=== PATIENT | male | born 1965 | race Two or more races ===

== ENCOUNTER 2019-02-18 16:48 | Emergency (ER) | payer MEDICAID ==
[~2019-02-18] VITALS: Ht 180.3 cm; Wt 95.3 kg
--- NOTE | 2019-02-18 16:55 | NUR ---
ED Nurse Note: Pt BIBA from [facility] w/ complaints of abdominal pain since last night. Pt is rating the pain a 10/10. Non radiating. Pt has n,v,d as well. Pt has had a hx of pancreatitis x 4 years and it occurs intermittently. Pt is A + O x4. Ambulatory. Skin warm to touch.
[2019-02-18 17:06] VITALS: BP 174/118
--- NOTE | 2019-02-18 17:08 | NUR ---
ED Nurse Note: US at the bedside.
[2019-02-18 17:22] LABS: BASOPHILS % (AUTO) 1.5 % (0.0-2.0); EOSINOPHILS % (AUTO) 1.8 % (0.0-3.0); HEMATOCRIT 48.8 % (42.0-52.0); HEMOGLOBIN 15.8 G/DL (14.2-18.0); LYMPHOCYTES % (AUTO) 34.7 % (20.0-45.0); MEAN CORPUSCULAR VOLUME 82 FL (80-99); MONOCYTES % (AUTO) 6.3 % (1.0-10.0); NEUTROPHILS % (AUTO) 55.7 % (45.0-75.0); PLATELET COUNT 264 K/UL (150-450); RED BLOOD COUNT 5.95 M/UL (4.70-6.10); RED CELL DISTRIBUTION WIDTH 12.8 % (11.6-14.8); WHITE BLOOD COUNT 5.6 K/UL (4.8-10.8)
[2019-02-18 17:28] LABS: ANION GAP 11 mmol/L (5-15); BLOOD UREA NITROGEN 9 mg/dL (7-18); CALCIUM 9.1 MG/DL (8.5-10.1); CARBON DIOXIDE 29 MMOL/L (21-32); CHLORIDE 100 MMOL/L (98-107); CREATININE 0.7 MG/DL (0.55-1.30); POTASSIUM 4.3 MMOL/L (3.5-5.1); SODIUM 140 MMOL/L (136-145)
[2019-02-18 17:30] LABS: INR 0.9 (0.9-1.1)
[2019-02-18 17:34] LABS: AMMONIA 28 umol/L (11-32)
[2019-02-18 17:37] LABS: ALANINE AMINOTRANSFERASE 41 U/L (12-78); ALBUMIN 4.2 G/DL (3.4-5.0); ALBUMIN/GLOBULIN RATIO 0.9 (1.0-2.7); ALKALINE PHOSPHATASE 91 U/L (46-116); ASPARTATE AMINO TRANSFERASE 34 U/L (15-37); BILIRUBIN,TOTAL 0.2 MG/DL (0.2-1.0)
[2019-02-18] MEDS ORDERED: Morphine Sulfate 4mg/ml Inj (IV USE ONLY) IVP ONE (17:45)
[2019-02-18] MEDS ORDERED: Lidocaine 2% Visc 15ml soln ORAL ONE (18:15)
--- NOTE | 2019-02-18 18:59 | NUR ---
HAND-OFF: Report given to YULISSA Argueta.
--- NOTE | 2019-02-18 19:03 | Emergency Room Report ---
History of Present Illness General Chief Complaint: Abdominal Pain Source: Patient, EMS Present Illness HPI This patient complains of pain in the right upper quadrant and epigastrium. The patient states he has had this previously and was seen a couple days ago at [facility]. He states he was borderline pancreatitis. He does admit to drinking alcohol. He states he drinks alcohol because of the pain. He denies tobacco or drug use. States the pain is in his upper abdomen. He has been seen at other hospitals for the same thing. He states he just keeps getting released. He states that he has had nausea and vomiting. He denies diarrhea. He states he is having normal bowel movements. He has no other complaints. Allergies: Coded Allergies: No Known Allergies (Unverified , 02/18/19) Patient History Past Medical History: see triage record, HTN, seizures Social History: Reports: alcohol use; Denies: smoking, drug use Reviewed Nursing Documentation: PMH: Agreed; PSxH: Agreed Nursing Documentation-PMH Past Medical History: No History, Except For Hx Hypertension: Yes Hx Seizures: Yes Review of Systems All Other Systems: negative except mentioned in HPI Physical Exam Vital Signs Date Time Temp Pulse Resp B/P (MAP) Pulse Ox O2 Delivery O2 Flow Rate FiO2 02/18/19 16:42 98.4 100 21 156/103 98 Room Air 02/18/19 17:06 94 Sp02 EP Interpretation: reviewed, normal General Appearance: no apparent distress, alert, GCS 15, non-toxic Head: normocephalic, atraumatic Eyes: bilateral eye normal inspection, bilateral eye PERRL ENT: hearing grossly normal, normal pharynx, no angioedema, normal voice Neck: full range of motion, supple/symm/no masses Respiratory: chest non-tender, lungs clear, normal breath sounds, no respiratory distress, no retraction, no accessory muscle use, speaking full sentences Cardiovascular #1: regular rate, rhythm, no edema Gastrointestinal: normal bowel sounds, soft, non-distended, no guarding, no rebound, tenderness - TTP in the epigastrium Rectal: deferred Musculoskeletal: back normal, gait/station normal, normal range of motion, non- tender Neurologic: alert, oriented x3, responsive, motor strength/tone normal, sensory intact, speech normal Psychiatric: judgement/insight normal, memory normal, mood/affect normal, no suicidal/homicidal ideation Skin: normal color, no rash, warm/dry, well hydrated Medical Decision Making Diagnostic Impression: Primary Impression: Abdominal pain Additional Impression: Gastritis ER Course This patient has a clinical presentation consistent with gastritis versus pain seeking versus cannabis use side effects. The location of the pain and history and physical examination is consistent with this. I considered other concerning differentials, to include appendicitis, cholelithiasis, cholecystitis , pancreatitis, perforated viscus, aortic aneurysm, and pyelonephritis to name a few. However, laboratory workup in combination with medical and surgical history and physical exam makes these unlikely at this time. Ultrasound of the right upper quadrant showed no significant findings. Specifically no evidence of cholelithiasis or cholecystitis. There was no evidence of pancreatitis. I suspect this patient is narcotic seeking. Further discussion with the patient and he requested anxiety medications. The patient had no evidence of anxiety. He also has been to multiple emergency departments recently. He also is very dramatic on arrival here to the emergency department with a completely unremarkable workup. He states he is drinking alcohol heavily. He could have a gastritis. I suspect he is also using illicit drugs. However, he refused a urinalysis. Regardless, I did not identify an emergency medical condition. I will chief the patient has gastritis. I did educate the patient on close return precautions and followup instructions. Laboratory Tests Test 02/18/19 17:05 White Blood Count 5.6 K/UL (4.8-10.8) Red Blood Count 5.95 M/UL (4.70-6.10) Hemoglobin 15.8 G/DL (14.2-18.0) Hematocrit 48.8 % (42.0-52.0) Mean Corpuscular Volume 82 FL (80-99) Mean Corpuscular Hemoglobin 26.5 PG (27.0-31.0) L Mean Corpuscular Hemoglobin Concent 32.3 G/DL (32.0-36.0) Red Cell Distribution Width 12.8 % (11.6-14.8) Platelet Count 264 K/UL (150-450) Mean Platelet Volume 5.4 FL (6.5-10.1) L Neutrophils (%) (Auto) 55.7 % (45.0-75.0) Lymphocytes (%) (Auto) 34.7 % (20.0-45.0) Monocytes (%) (Auto) 6.3 % (1.0-10.0) Eosinophils (%) (Auto) 1.8 % (0.0-3.0) Basophils (%) (Auto) 1.5 % (0.0-2.0) Prothrombin Time 9.7 SEC (9.30-11.50) Prothrombin Time INR 0.9 (0.9-1.1) PTT 27 SEC (23-33) Sodium Level 140 MMOL/L (136-145) Potassium Level 4.3 MMOL/L (3.5-5.1) Chloride Level 100 MMOL/L (98-107) Carbon Dioxide Level 29 MMOL/L (21-32) Anion Gap 11 mmol/L (5-15) Blood Urea Nitrogen 9 mg/dL (7-18) Creatinine 0.7 MG/DL (0.55-1.30) Estimate Glomerular Filtration Rate > 60 mL/min (>60) Glucose Level 123 MG/DL (74-106) H Calcium Level 9.1 MG/DL (8.5-10.1) Total Bilirubin 0.2 MG/DL (0.2-1.0) Aspartate Amino Transferase (AST) 34 U/L (15-37) Alanine Aminotransferase (ALT) 41 U/L (12-78) Alkaline Phosphatase 91 U/L (46-116) Ammonia 28 umol/L (11-32) Total Protein 8.8 G/DL (6.4-8.2) H Albumin 4.2 G/DL (3.4-5.0) Globulin 4.6 g/dL Albumin/Globulin Ratio 0.9 (1.0-2.7) L Lipase 313 U/L (73-393) CT/MRI/US Diagnostic Results CT/MRI/US Diagnostic Results : Imaging Test Ordered: US abd Impression No acute findings. See official report in electronic medical record. Last Vital Signs Date Time Temp Pulse Resp B/P (MAP) Pulse Ox O2 Delivery O2 Flow Rate FiO2 02/18/19 18:05 98.3 02/18/19 17:06 97 17 Room Air 94 02/18/19 17:06 174/118 94 Status: improved Disposition: HOME, SELF-CARE Condition: Improved Referrals: NON PHYSICIAN (PCP) Patient Instructions: Abdominal Pain, Adult Sabra Trejo DO Feb 18, 2019 19:03
[2019-02-18] MEDS ORDERED: RANITIDINE HCL150 MG ORAL (19:13)
[2019-02-18] MEDS ORDERED: Lisinopril 10mg tab ORAL ONE (19:45)
[2019-02-18 19:54] VITALS: BP 175/103
--- NOTE | 2019-02-18 21:00 | NUR ---
ER DISCHARGE NOTE: Patient is cleared to be discharged per ERMD, pt is aox4, on room air, with stable vital signs. pt was given dc and prescription instructions, pt was able to verbalize understanding, pt id band and iv site removed without complications. pt is able to ambulate with steady gait. pt took all belongings.
--- NOTE | 2019-02-19 11:39 | Diagnostic Imaging Report ---
Indication: Abdominal pain Technique: Angelo-scale and duplex images of the upper abdomen were obtained Comparison: none Findings: Exam is somewhat limited due to patient body habitus and inability to cooperate optimally with breathing instructions. Gallbladder it demonstrates sludge. No stones, wall thickening, nor pericholecystic fluid. Sonographic Cornell's sign is negative. Common bile duct measures 5 mm in diameter. No intrahepatic biliary ductal dilatation. Liver demonstrates diffusely increased echogenicity, consistent with diffuse hepatocellular disease, most likely fatty change. It is enlarged. Portal vein and hepatic veins are patent. Pancreas is obscured by bowel gas. Spleen cannot be visualized due to overlying bowel gas Left kidney measures 12.2 cm in length. Right kidney measures 12.8 cm length. Both kidneys demonstrate normal echogenicity. There is no hydronephrosis. No focal abnormality . Abdominal aorta is obscured by bowel gas . Impression: Very limited exam as described. Note inability to visualize pancreas, spleen, and abdominal aorta Gallbladder sludge. Negative for gallstones or dilated bile ducts Liver demonstrates diffusely increased echogenicity, consistent with diffuse hepatocellular disease, most likely fatty change. It is enlarged.
== END 2019-02-18 19:25 | disposition home or self-care (01) ==
LOC: EDBD 16:48 → EMR 17:28
DX: K29.70 Gastritis, unspecified, without bleeding (principal); R10.11 Right upper quadrant pain; I10 Essential (primary) hypertension; G40.909 Epilepsy, unspecified, not intractable, without status epilepticus
CPT/HCPCS: 36415; 76700; 80053; 82140; 83690; 85025; 85610; 85730; 96374; 96375; 99284; J2270; S0028